=== PATIENT | female | born 1965 | race Caucasian/White ===

== ENCOUNTER 2017-02-06 20:50 | Observation (INO) | payer OTHER ==
[~2017-02-06] VITALS: Ht 167.6 cm; Wt 92.0 kg
[2017-02-06 21:12] VITALS: BP 162/95; PULSE 89; RESP 10; O2SAT 97
[2017-02-06 21:19] LABS: BASOPHILS % (AUTO) 0.2 % (0-3); EOSINOPHILS % (AUTO) 0.7 % (0-5); MONOCYTES % (AUTO) 5.2 % (4-12); Mean Corpuscular Hemoglobin 29.9 pg (27.0-35.0); Mean Corpuscular Volume 87.6 fL (81-100); NEUTROPHILS % (AUTO) 87.2 % (40-74); Platelet Count 277 bil/L (150-400)
--- NOTE | 2017-02-06 21:34 | ED.REPORT ---
HPI-Chest Pain 40 and Over Date of Service Feb 06, 2017 ED Provider: Alma Cardona MD Patient is a 51 year old female who is an everyday smoker with a history of hypertension and high cholesterol who presents to the ED complaining of chest pain onset three hours ago. She states that she started vomiting while driving and then started having chest pain that radiates into her left shoulder. The patient reports that the chest pain has been constant and is exacerbated with deep inspiration. Associated symptoms include shortness of breath, a non- productive cough and generalized myalgias. Currently her nausea is resolved. The patient denies diaphoresis, swelling in legs, numbness, weakness, fever, chills, and diarrhea. Nursing Notes Stated Complaint: CHEST PAIN AND VOMITING Chief Complaint: Chest Pain Nursing Notes Reviewed: Yes Allergies: Coded Allergies: codeine (Verified Allergy, Unknown, 02/06/17) tetracycline (Verified Allergy, Unknown, 02/06/17) General Time Seen by MD: 21:33 Chief Complaint Chest pain Hx Obtained From: Patient Arrived By: Walk-in Sudden in Onset?: Yes Onset Occurred: 1 - 4 hours ago Symptom Duration: Since onset Location: : Substernal Quality: Painful Radiation: : Shoulder left Severity: Current: Moderate Severity: Maximum: Moderate Associated with: Reports: Nausea, Shortness of Breath, Vomiting Recent Healthcare: No recent doctor visit, No recent hospitalization Similar Sx Previous: No Past Medical History Past Medical History hypertension high cholesterol Past Surgical History right kidney carpal tunnel surgery Family History stroke quadrupal bipass Smoking History Current Every Day Smoker Ambulatory Status Independent Review of Systems Constitutional: Denies: Chills, Fever Respiratory: Reports: Non-productive cough, Shortness of breath Cardiovascular: Reports: Chest pain GI: Reports: Nausea, Vomiting, Denies: Diarrhea Skin: Denies Diaphoresis Neurologic: Denies: Numbness Complete sys rev & neg: except as marked. Physical Exam Initial Vital Signs Vital Signs (First) Date Time Temp Pulse Resp B/P Pulse Ox O2 Delivery O2 Flow Rate FiO2 02/06/17 21:12 89 10 162/95 97 Room Air Initial VS: Reviewed General/Constitutional: Awake, Alert, No acute distress Respiratory / Chest: Atraumatic, No respiratory distress diffusive coarse breath sounds throughout Cardiovascular: Heart rate NL, Regular rhythm, Heart sounds NL Abdomen: Atraumatic, Soft, Non-tender Neck: Atraumatic, Supple, Full range of motion Back: Atraumatic, Full range of motion Lower Extremity / Pelvis / MS: Atraumatic, Full range of motion Skin: Atraumatic, Color NL, No rash, Warm, Dry Neurologic: Oriented X3, Speech NL, No motor deficits, No sensory deficits Psychiatric: Affect NL, Mood NL Head / Eyes: Atraumatic, Normocephalic, PERRL, EOMI ENT: Atraumatic, Airway patent, Mucous membranes moist Upper Extremity / MS: Atraumatic, Full range of motion Interpretation & Diagnostics Lab Results Interpretation Result Diagram: 02/06/17 2100 02/06/17 2100 Test 02/06/17 20:13 02/06/17 21:00 D-Dimer < 0.50mg/L FEU (<0.50) White Blood Count 16.0th/mm3 (3.8-10.1) Red Blood Count 5.15mil/mm3 (3.90-5.20) Hemoglobin 15.4g/dL (12.0-15.6) Hematocrit 45.1% (35.0-46.0) Mean Corpuscular Volume 87.6fL (81-100) Mean Corpuscular Hemoglobin 29.9pg (27.0-35.0) Mean Corpuscular Hemoglobin Concent 34.1% (32.0-37.0) Red Cell Distribution Width 13.5% (12.3-15.4) Platelet Count 277bil/L (150-400) Neutrophils (%) (Auto) 87.2% (40-74) Lymphocytes (%) (Auto) 6.6% (14-46) Monocytes (%) (Auto) 5.2% (4-12) Eosinophils (%) (Auto) 0.7% (0-5) Basophils (%) (Auto) 0.2% (0-3) Sodium Level 142mEq/L (134-144) Potassium Level 4.1mEq/L (3.5-5.2) Chloride Level 101mEq/L (97-108) Carbon Dioxide Level 21mmol/L (18-29) Blood Urea Nitrogen 15mg/dL (6-24) Creatinine 0.89mg/dL (0.57-1.00) Estimat Glomerular Filtration Rate 95mL/min (>59) Glucose Level 119mg/dL (60-99) Calcium Level 10.1mg/dL (8.5-10.1) Magnesium Level 1.9mg/dL (1.6-2.6) Total Bilirubin 0.4mg/dL (0.0-1.2) Aspartate Amino Transf (AST/SGOT) 20U/L (0-50) Alanine Aminotransferase (ALT/SGPT) 14U/L (0-32) Alkaline Phosphatase 90U/L (25-150) Troponin T < 0.010ug/L (0.0-0.011) Total Protein 8.0g/dL (6.4-8.4) Albumin 4.7g/dL (3.4-5.0) ECG Interpretation ECG Interpretation: sinus tachycardia, rate [address] elevation T wave inversion in aVR Time: 20:55 Interpreted by: ED physician X-Ray Chest Interpretation Chest Xray Interpretation: IMPRESSION: No acute disease Dictated by: Doug Ryan M.D. on 02/06/2017 at 21:45 Approved by: Doug Ryan M.D. on 02/06/2017 at 21:45 View: Portable, 1 view Interpretation / Wet Read by: Interpret - Radiologist Re-Eval/Medical Decision Med Decision/Clinical Course 51-year-old female with past medical history of hypertension, hyperlipidemia, tobacco abuse, family history of ACS here with chest pain, nausea, vomiting, shortness of breath. Differential diagnosis includes but is not limited to ST elevation WV versus non-ST elevation WV versus PE versus pleural effusion. Patient's EKG does not show any evidence of ST elevation W[place]. Her initial troponin is negative. She does not have pleural effusion on chest x-ray. Her d -dimer was negative. Given patient's concerning story, and risk factors, I have admitted her to the hospitalist for formal ACS rule out. She is aware and amenable to admission at this time. Time of Eval: 22:05 Re-Evaluation/Progress Note: Discussed need for admission. Patient is amenable to the plan. All other questions addressed. Consultation : Referral / Consult Name: Chris Hamilton MD Consulted With: Hospitalist Call Returned at: 22:43 Web Project Manager: Agrees with eval, Agrees with plan, Accepts admit Counseled Regarding: Diagnosis, Lab results, Need for admission Discharge & Departure Primary Impression: Chest pain Disposition: ADMITTED TO HOSPITAL Discharge Condition All VS Reviewed: Yes Condition: Stable Referrals: OTHER,PHYSICIAN (PCP) Scribe Attestation Portions of this note were transcribed by Taty Garcia and Buster Noble. I, Dr. Cardoan personally performed the history, physical exam and medical decision- making; I reviewed and confirmed the accuracy of the information in the transcribed note. Signed by: Taty Noble, Mayra, 02/06/17 and 2477 Alma Cardona MD Feb 06, 2017 21:34 Althea Garcia Feb 06, 2017 21:59 BUSTER NOBLE Feb 06, 2017 23:26
--- NOTE | 2017-02-06 21:47 | DRSVH ---
PROCEDURE: X-RAY CHEST ONE VIEW, PORTABLE ([id number]) INDICATIONS: Chest pain TECHNIQUE: One view of the chest was acquired. COMPARISON: None. FINDINGS: Surgical changes and devices: None. Lungs and pleura: No pleural effusions or pneumothorax. Lungs are clear. Mediastinum: Mediastinal contours appear normal. Heart size is normal. Bones and chest wall: No suspicious bony lesions. Overlying soft tissues appear unremarkable. IMPRESSION: No acute disease Dictated by: Doug Ryan M.D. on 02/06/2017 at 21:45 Approved by: Doug Ryan M.D. on 02/06/2017 at 21:45
[2017-02-06 21:50] VITALS: BP 169/94; PULSE 85; RESP 17; O2SAT 98
[2017-02-06 21:55] LABS: TROPONIN T < 0.010 ug/L (0.0-0.011)
[2017-02-06 22:03] LABS: Magnesium 1.9 mg/dL (1.6-2.6)
[2017-02-06] MEDS ORDERED: Ondansetron 2 mg/mL 2 mL Inj IVPUSH ONE (22:10)
[2017-02-06] MEDS ORDERED: Alum-Mag Hydrox-Simeth 30 mL Suspension PO PRN ×2 (22:50→23:50)
[2017-02-06] MEDS ORDERED: Ondansetron 2 mg/mL 2 mL Inj IVPUSH PRN ×2 (22:50→23:50)
[2017-02-06 23:14] VITALS: BP 152/89; PULSE 86; RESP 21; O2SAT 95
[2017-02-06 23:24] VITALS: BP 152/89; PULSE 86; RESP 21; O2SAT 95
[2017-02-06 23:38] VITALS: BP 152/82; PULSE 74; RESP 22; O2SAT 94
--- NOTE | 2017-02-06 23:41 | PCM.HPMED ---
Subjective Date of Service Feb 06, 2017 Primary Provider: Admitting Physician: Chris Hamilton MD Primary Care Physician: Other,Physician Attending Physician: Chris Hamilton MD Admit Status: From the Emergency Department Chief Complaint: Chest pain History of Present Illness: This is a somewhat depressed and tearful appearing 51 Y/O F with a Hx of GERD on omperazole, HTN, high cholesterol, and depression (takes Sertraline), who presented to the ED complaining of chest pain onset 1930 while she was driving her car. She states that she started vomiting while driving. Patient vomited in the car twice daily a 16 ounce container. Patient pulled over to a filling station and then proceeded to vomit another 8 times. After vomiting she began to experience chest pain that worsened with deep breathing. She states the chest pain radiated to her left shoulder and side neck. She denied previous similar symptoms in the past. Of note patient is a tobacco smoker. Associated signs and symptoms include nausea, vomiting, chills, shortness of breath, a 9 day history of non-productive cough. Currently her nausea is resolved. The patient denied diaphoresis, fever, chills, diaphoresis, diarrhea, constipation, sick contacts, abdominal pain, vision changes, lightheadedness, syncope, numbness, weakness. Patient was admitted to the hospital for chest pain and acute coronary syndrome ruled out. Vital signs and the ED, pulse 89, respiratory rate 21, blood pressure 152/89, with a map of 110, 95% on room air. In the ED patient received aspirin 325 mg once, IV Zofran 4 mg once. Hemogram showed: WBCs 16.0, percent neutrophils 87.2, H/H 15.4/45.1, platelets 277, Chemistry panel showed: Glucose 119, troponin 0.010, sodium 142, potassium 4.1, chloride 101, CO2 21, BUN 15, creatinine 0.9, otherwise normal chemistry panel. D-dimer less than 0.50 EKG showed: Review of Systems: A comprehensive review of systems was conducted and was negative except as mentioned in history of present illness. Allergies Coded Allergies: codeine (Verified Allergy, Unknown, 02/06/17) tetracycline (Verified Allergy, Unknown, 02/06/17) metronidazole (Verified Adverse Reaction, Unknown, Hives, 02/06/17) Home Medications Medication record is incomplete, as patient is not a good historian PCP is Basia [facility] Patient takes sertraline Patient takes omeprazole 20 mg daily reportedly Cholesterol and hypertension medication PMH hypertension high cholesterol Depression GERD Surgical History right sided nephrectomy Right carpal tunnel surgery Vaginal fistula repair 1991 Abortions 2 elective Family History stroke quadrupl bipass Social History Hx Alcohol Use: Yes Hx Substance Use: Yes Hx Tobacco Use: Yes (patient states she is quitting tobacco today) Smoking Status: Current Every Day Smoker Living Arrangement: with Family (patient lives with her daughter and granddaughter at home) Exam Vital Signs Vital Sign - Last Date Time Temp Pulse Resp B/P Pulse Ox O2 Delivery O2 Flow Rate FiO2 02/06/17 23:24 86 21 152/89 95 Room Air Exam General: Alert and oriented 3, somewhat tearful and labile during exam, answering questions in full sentences, resting comfortably in bed, appearing somewhat distraught. HEENT: NC/AT, eyes, PERRLA, EOMI, neck, soft supple, no adenopathy, no JVD, no masses, no thyromegaly, throat mucous membranes pink and moist, no erythema, no exudates, no tonsillar swelling, no uvular deviation. Lungs: Lungs significant for bilateral wheezes wheezes, no rhonchi, no crackles , no use of accessory muscles of respiration, good air movement, good respiratory effort. Heart: Regular rate and rhythm, no murmur, S1-S2 present, no rub, no click, no distant heart sounds, Abdomen: Soft, mild epigastric tenderness with palpation, nondistended, bowel sounds active, no rebound, no guarding, Genitourinary: No CVA tenderness, mild suprapubic tenderness, no Mark catheter, Extremities: Ppulses equal and symmetric upper/lower extremity including radial and dorsalis pedis, no edema Neurologic: Grossly neurologically intact, speaking in full sentences, no focal neurological signs. Skin: Skin on anterior chest petechial type rash Psychiatric: Mood is depressed, patient is tearful during interview, denies thoughts HI/SI, Lab and Diagnostics Result Diagram: 02/06/17209902/06/172099 X-Rays, CTs and MRIs Date of Service: 02/06/172056 PROCEDURE: X-RAY CHEST ONE VIEW, PORTABLE INDICATIONS: Chest pain TECHNIQUE: One view of the chest was acquired. COMPARISON: None. FINDINGS: Surgical changes and devices: None. Lungs and pleura: No pleural effusions or pneumothorax. Lungs are clear. Mediastinum: Mediastinal contours appear normal. Heart size is normal. Bones and chest wall: No suspicious bony lesions. Overlying soft tissues appear unremarkable. IMPRESSION: No acute disease Dictated by: Doug Ryan M.D. on 02/06/2017 at 21:45 Approved by: Doug Ryan M.D. on 02/06/2017 at 21:45 Assessment & Plan This is a pleasant 51-year-old female with past history of hypertension and hyperlipidemia who presented to the ED with acute onset chest pain 3 hours radiated to the left shoulder with associated vomiting area and patient was admitted to the hospital for further workup of acute coronary syndrome. # Acute Coronary Syndrome/GA, Present on Admission -Patient reports acute onset chest pain radiating to the neck and upper chest on the left after having vomited 10. Patient denies previous history of similar symptoms chest pain. Chest pain was described as constant and exacerbated by deep breathing. -Of note patient has had a minimally productive cough for the past 9 days. -Troponin in the ED 0.010 -EKG, ordered and pending -CXR showed no acute process -Troponin T X 2, ordered and pending -CPK-MB ordered and pending -Echo scheduled for the morning -We will consider Stress testing if troponins elevated -O2 Sats keep > 94% -IV fluids normal saline at 100 mL per hour -She has home medication for cholesterol, med rec no complete -Morphine for pain control -Nitro SL, Nitro Harmony, Nitro Paste (PRN) -Aspirin 325mg -Continuous Cardiac Monitoring/BP monitoring -May consider cardiology consult in the morning if troponins returned positive. -Labs (Lipid Panel, CBC, CMP, PT/PTT/INR) -NPO # Leukocytosis, present does not on admission, active - Vital signs and the ED, pulse 89, respiratory rate 21, blood pressure 152/89 , with a map of 110, 95% on room air. - Hemogram showed: WBCs 16.0, percent neutrophils 87.2, H/H 15.4/45.1, platelets 277 # Cough Non productive, present on admission, active - CXR showed: No acute process - Physical exam significant for bilateral wheezes - DuoNeb therapy every 4 hours 2 then when necessary # Vomiting, present on admission, active -Patient reports rapid onset feeling that she was ill and began vomiting while driving her vehicle. - She reports having vomited 10 times onset 1930 on 02/06/2017, patient states she was able to feel a 16 ounce container twice and then vomited more times with gas station. - She received IV Zofran in the ED with improvement - IV Zofran - IV fluids as previously stated # Hyperglycemia, present on admission, active - Glucose 118 - Likely stress reaction - Continue to monitor Chronic problems hypertension -Continue home medication high cholesterol -Continue cholesterol medication, medication reconciliation not completed as patient does not know meds or dosing. GERD - Continue home medication omeprazole 20 mg daily Depression - Continue home medication sertraline, medication reconciliation not completed. Tobacco smoker, -Smokes 1 pack per day, states she is quitting today. Disposition: Admitted to in patient service for observation secondary to chest pain and acute coronary syndrome rule out, and to severity of presenting symptoms, treatment plan, complexity of clinical work up, and risk of adverse events. CODE STATUS: Full code PCP: Basia Farias, [facility] DVT PE prophylaxis: SubQ heparin Q8H Contact: Patient's brother Basim [phone] Pain Evaluation: Adequate Pain Control VTE Prophylaxis: Sub-Q Heparin (Unfractionated) Resuscitation Status: CPR: Attempt Resuscitation Attending Statement The patient was seen and examined together with Dr. Miller on 02/06/2017 and I agree with the history, exam and plan as outlined in the note above. Luis Alfredo Miller DO Feb 06, 2017 23:41 Chris Hamilton MD Feb 07, 2017 05:02
--- NOTE | 2017-02-06 23:41 | NUR ---
Admission Pt arrived to room 3019 alert and oriented and able to ambulate. Pt had no complaints of pain or chest discomfort, and was conversing in full sentences. Pt was oriented to room, call light, bed, policies, and placed on telemetry. Addendum: 02/07/17 at 0047 by TONY BAIG RN Pt did not know her home medications and said she could call her daughter in the morning and get the list over the phone.
[2017-02-06 23:48] LABS: APPEARANCE,URINE CLEAR (CLEAR,HAZY); COLOR,URINE DARK YELLOW (YELLOW)
[2017-02-06 23:49] LABS: OCCULT BLOOD,URINE NEGATIVE (NEGATIVE)
[2017-02-06] MEDS ORDERED: Senna-Docusate 8.6-50 mg Tablet PO PRN (23:50)
[2017-02-06] MEDS ORDERED: Polyethylene Glycol (PEG) 17 Gm Powder PO PRN (23:50)
[2017-02-07] VITALS (8 sets, daily range): BP systolic 117–146; BP diastolic 70–95; PULSE 55–75; RESP 16–20; O2SAT 94–96
[2017-02-07] MEDS: Sodium Chloride LOK Flush 10 mL Syringe IVFLUSH SCH ×3 (00:35→16:30)
[2017-02-07] MEDS: 0.9% Sodium Chloride 1,000 ML IV SCH ×2 (00:35→13:06)
[2017-02-07] MEDS: Heparin 5,000 Unit/mL Inj SUBQ SCH ×3 (00:36→17:16)
[2017-02-07] MEDS ORDERED: Albuterol-Ipratropium 3 mL Inhalation Solution NEB ONE (00:38)
[2017-02-07] MEDS ORDERED: Albuterol-Ipratropium 3 mL Inhalation Solution NEB PRN (00:40)
[2017-02-07 01:02] LABS: INR 0.95 ratio
[2017-02-07 01:12] LABS: TROPONIN T < 0.010 ug/L (0.0-0.011)
[2017-02-07 01:13] LABS: Magnesium 1.9 mg/dL (1.6-2.6)
[2017-02-07 05:46] LABS: BASOPHILS % (AUTO) 0.4 % (0-3); EOSINOPHILS % (AUTO) 1.5 % (0-5); MONOCYTES % (AUTO) 6.4 % (4-12); Mean Corpuscular Hemoglobin 30.2 pg (27.0-35.0); Mean Corpuscular Volume 89.3 fL (81-100); NEUTROPHILS % (AUTO) 67.8 % (40-74); Platelet Count 227 bil/L (150-400)
--- NOTE | 2017-02-07 12:46 | DRSVH ---
[facility] [address] [place] [address] Echocardiogram Report Name: PETER CROCKETT MStudy Date : 02/07/2017 Height: 66 in Hospital Exam Location: [facility] Weight: 197 lb Gender: Female BSA: 2.0 m2 : 1965 Age: 51 yrs BP: 117/70 mmHg Reason For Study: Chest pain Ordering Physician: Performed By: [facility] Interpretation Summary 1) Mild concentric left ventricular hypertrophy with normal size, wall motion, and systolic functoin (EF 60-65%). 2) Normal right ventricular size and function. 3) No significant valvluar abnormalities. 4) No prior Echo available for comparison. Procedure: A two-dimensional transthoracic echocardiogram with color flow and Doppler was performed. The study quality was technically adequate. There is no prior echocardiogram noted for this patient. The patient was in normal sinus rhythm during the exam. Left Ventricle: There is mild concentric left ventricular hypertrophy. The left ventricle is normal in size. The ejection fraction is estimated to be 60 -65%. Left ventricular systolic function is normal. Left ventricular wall motion is normal. Assessment of diastolic parameters indicates a relaxation abnormality of the left ventricle, consistent with normal filling pressures. Right Ventricle: The right ventricle is normal in size and function. Atria: Both atria are normal in size. There is no Doppler evidence for an interatrial shunt. Mitral Valve: The mitral valve is normal in structure and function. There is trace mitral regurgitation. Aortic Valve: The aortic valve is grossly normal. The aortic valve opens well. There is no aortic valve stenosis. No aortic regurgitation is present. Tricuspid Valve: The tricuspid valve is normal in structure and function. There is a trace or physiologic amount of tricuspid regurgitation. The right ventricular systolic pressure is estimated at least 22 mmHg assuming a right atrial pressure of 3 mm Hg. Pulmonic Valve: The pulmonic valve is not well visualized. There is trace pulmonic regurgitation. Great Vessels: The aortic root is normal size. The ascending aorta could not be visualized. The aortic arch is at the upper limits of normal in size. The IVC is of normal diameter and collapses greater than 50% with a sniff. This suggests a low right atrial pressure of 3 mm Hg. Pericardium/ Pleura There is no pericardial effusion. MMode/2D Measurements & Calculations LVIDd: 4.4 cm RA long axis LVOT diam: 2.1 cm LVIDs: 2.9 cm LA A2 area: 21.0 cm Ao root diam FS: 34.3 % LA A4 area: 17.6 cm RA area EPSS: 0.36 cm LA length (vol) Aortic Jxn: 2.4 cm IVSd: 1.2 cm : 15.6 cm Ao Arch Diam (Prox LVPWd: 1.2 cm LA vol: 64.2 ml RA vol Trans): 3.1 cm LA vol index : 41.9 ml RA : 21.1 mm2 IVC diam: 1.7 cm LV sheehan. diameter/BSA LV sys. diameter/BSA RVD1 (basal) RVD2 (mid): 2.5 cm (cm/m^2): 2.2 (cm/m^2): 1.5 Doppler Measurements & Calculations Ao V2 max MV E max rey MV E/A: 1.3 TR max rey : 169.6 cm/sec : 92.6 cm/sec Med Peak E' Rey : 217.5 cm/sec Ao max PG MV A max rey TR max PG : 11.5 mmHg : 72.9 cm/sec E/E' med: 14.2 : 18.9 mmHg Ao mean PG MV P1/2t: 74.8 msec Lat Peak E' Rey PA V2 max : 92.0 cm/sec LVOT Max Rey E/E' lat: 10.1 PA mean PG : 102.5 cm/sec E/e' average: 12.2 Pulm A Revs Dur PA Accel Time BERNARDINO(I,D): 2.2 cm : 0.18 sec sev ratio MV A dur: 0.13 sec MV dec time MV P1/2t max rey Ao V2 mean LV V1 max PG : 0.25 sec : 114.3 cm/sec MVA(P1/2t): 2.9 cm2 Ao V2 VTI: 37.4 cm LV V1 VTI BERNARDINO(V,D): 2.1 cm2 : 24.2 cm PA V2 mean BERNARDINO indexed to BSA Kristin Pompas Dur - MV A : 61.8 cm/sec (cm^2/m^2): 1.1 Dur: -0.01 msec Reading Physician:12:45 PM
[2017-02-07] MEDS ORDERED: SERT100T PO (14:34)
[2017-02-07] MEDS ORDERED: LISI-567 PO (14:34)
[2017-02-07] MEDS ORDERED: ATOR20TA PO (14:34)
[2017-02-07] MEDS ORDERED: AZIT250T4 PO (14:34)
[2017-02-07] MEDS ORDERED: OMEP20TA86 PO (14:34)
--- NOTE | 2017-02-07 14:59 | NUR ---
Social Work -Brief Note Data: EMR reviewed. Pt was admitted 02/06/17 for chest pain resolved. [facility] SW met with pt at bedside to discuss discharge planning. SW role explained. Pt resides at home and is independent at baseline. Pt stated she has not completed DPOA/Advanced Care Directive paperwork and SW provided info to review and complete. Will discharge via POV when medically stable. No additional needs anticipated at this time. SW provided contact info on the board. SW will continue to follow for needs. Assessment: Pt who is independent at baseline. Plan: Pt likely to discharge home via POV with no needs. SW will continue to follow. ANDRES Dhaliwal
--- NOTE | 2017-02-07 16:04 | NUR ---
Activity/Stress test Pt has been ambulating in the hallway independently, no complains of chest discomfrt/pressure, SOB, or nausea. Stress test not completed 02/07, pt to be NPO after midnight tonight for completion of stress test 02/08 at 0900. Pt encouraged to contact staff for needs. Frequent rounding in place, will continue to monitor.
--- NOTE | 2017-02-07 18:37 | NUR ---
Diarrhea Pt reports episode of diarrhea following dinner, no complains of nausea or abdominal discomfrt. Pt thinks may be related to "drinking too much juice" takes Loperamide at home. MD nevarez for order, Frequent rounding in place, will continue to monitor. Addendum: 02/07/17 at 1901 by TANIYA CASTILLO RN order for medication generated.
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
[2017-02-08] MEDS: Sodium Chloride LOK Flush 10 mL Syringe IVFLUSH SCH ×2 (00:44→08:05)
[2017-02-08] MEDS: Heparin 5,000 Unit/mL Inj SUBQ SCH ×2 (00:45→08:07)
[2017-02-08 02:01] VITALS: BP 120/79; PULSE 52; RESP 18; O2SAT 97
--- NOTE | 2017-02-08 04:27 | NUR ---
PT ACTIVITY Pt has been up to BR independently. Pt has denied any pain or complaints during night. Pt aware of cardiac stress test in am. Continue to monitor. Call light in reach. Intentional rounding.
[2017-02-08 06:33] VITALS: BP 122/82; PULSE 53; PULSE 63; RESP 17; O2SAT 97
[2017-02-08] MEDS ORDERED: Pantoprazole 20 mg ER24 Tablet PO SCH (07:30)
[2017-02-08] MEDS ORDERED: Albuterol 2.5 mg/3 mL Inhalation Solution NEB PRN (08:00)
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
--- NOTE | 2017-02-08 09:09 | PCM.DIMED ---
Discharge Instructions Date of Service Feb 08, 2017 Dates of Hospitalization Feb 06, 2017 at 23:19 Discharge Diagnosis Discharge Diagnosis Chest pain due to asthma and bronchitis, hypertension, depression, gerd Medication Instructions Plese complete 2 more days of zithromax. Please complete 4 more days of prednisone New medication for BP, Hydrochlorothiazide is started. Test Results [facility] Diagnostic [place] [address] Patient Name: PETER CROCKETT MR#: [id number] Location[place] [facility] [place] Ordering Phys: Luis Alfredo Miller DO Date of Service: 02/07/17 0800 [facility] [address] [place] [address] Echocardiogram Report Name: PETER CROCKETT MStudy Date : 02/07/2017 Height: 66 in Hospital Exam Location: [facility] Weight: 197 lb Gender: Female BSA: 2.0 m2 : 1965 Age: 51 yrs BP: 117/70 mmHg Reason For Study: Chest pain Ordering Physician: Performed By: [facility] Interpretation Summary 1) Mild concentric left ventricular hypertrophy with normal size, wall motion, and systolic functoin (EF 60-65%). 2) Normal right ventricular size and function. 3) No significant valvluar abnormalities. 4) No prior Echo available for comparison. Procedure: A two-dimensional transthoracic echocardiogram with color flow and Doppler was performed. The study quality was technically adequate. There is no prior echocardiogram noted for this patient. The patient was in normal sinus rhythm during the exam. Left Ventricle: There is mild concentric left ventricular hypertrophy. The left ventricle is normal in size. The ejection fraction is estimated to be 60 -65%. Left ventricular systolic function is normal. Left ventricular wall motion is normal. Assessment of diastolic parameters indicates a relaxation abnormality of the left ventricle, consistent with normal filling pressures. Right Ventricle: The right ventricle is normal in size and function. Atria: Both atria are normal in size. There is no Doppler evidence for an interatrial shunt. Mitral Valve: The mitral valve is normal in structure and function. There is trace mitral regurgitation. Aortic Valve: The aortic valve is grossly normal. The aortic valve opens well. There is no aortic valve stenosis. No aortic regurgitation is present. Tricuspid Valve: The tricuspid valve is normal in structure and function. There is a trace or physiologic amount of tricuspid regurgitation. The right ventricular systolic pressure is estimated at least 22 mmHg assuming a right atrial pressure of 3 mm Hg. Pulmonic Valve: The pulmonic valve is not well visualized. There is trace pulmonic regurgitation. Great Vessels: The aortic root is normal size. The ascending aorta could not be visualized. The aortic arch is at the upper limits of normal in size. The IVC is of normal diameter and collapses greater than 50% with a sniff. This suggests a low right atrial pressure of 3 mm Hg. Pericardium/ Pleura There is no pericardial effusion. MMode/2D Measurements & Calculations LVIDd: 4.4 cm RA long axis LVOT diam: 2.1 cm LVIDs: 2.9 cm LA A2 area: 21.0 cm Ao root diam FS: 34.3 % LA A4 area: 17.6 cm RA area EPSS: 0.36 cm LA length (vol) Aortic Jxn: 2.4 cm IVSd: 1.2 cm : 15.6 cm Ao Arch Diam (Prox LVPWd: 1.2 cm LA vol: 64.2 ml RA vol Trans): 3.1 cm LA vol index : 41.9 ml RA : 21.1 mm2 IVC diam: 1.7 cm LV sheehan. diameter/BSA LV sys. diameter/BSA RVD1 (basal) RVD2 (mid): 2.5 cm (cm/m^2): 2.2 (cm/m^2): 1.5 Doppler Measurements & Calculations Ao V2 max MV E max rey MV E/A: 1.3 TR max rey : 169.6 cm/sec : 92.6 cm/sec Med Peak E' Rey : 217.5 cm/sec Ao max PG MV A max rey TR max PG : 11.5 mmHg : 72.9 cm/sec E/E' med: 14.2 : 18.9 mmHg Ao mean PG MV P1/2t: 74.8 msec Lat Peak E' Rey PA V2 max : 92.0 cm/sec LVOT Max Rey E/E' lat: 10.1 PA mean PG : 102.5 cm/sec E/e' average: 12.2 Pulm A Revs Dur PA Accel Time BERNARDINO(I,D): 2.2 cm : 0.18 sec sev ratio MV A dur: 0.13 sec MV dec time MV P1/2t max rey Ao V2 mean LV V1 max PG : 0.25 sec : 114.3 cm/sec MVA(P1/2t): 2.9 cm2 Ao V2 VTI: 37.4 cm LV V1 VTI BERNARDINO(V,D): 2.1 cm2 : 24.2 cm PA V2 mean BERNARDINO indexed to BSA Pulm A Revs Dur - MV A : 61.8 cm/sec (cm^2/m^2): 1.1 Dur: -0.01 msec Reading Physician:12:45 PM Diet Heart Healthy Activity No restrictions Patient Instructions Follow-up plan F/U with PCP in one to two weeks F/U BMP in 2 weeks prior to visit with PCP Saadia Caballero DO Feb 08, 2017 09:06
[2017-02-08 09:13] VITALS: PULSE 80
[2017-02-08 09:25] VITALS: PULSE 59; RESP 18; O2SAT 95
--- NOTE | 2017-02-08 09:28 | NUR ---
Stress test Pt off the unit for completion of stress test. No complains of chest discomfrt or SOB, voided prior. NPO since midnight, no caffeine, nitro or chocolate in the last 24 hours.
[2017-02-08] MEDS ORDERED: PRED-508 PO (11:07)
[2017-02-08] MEDS ORDERED: predniSONE 20 mg Tablet PO SCH (13:00)
[2017-02-08] MEDS ORDERED: HYDR12.5 PO (13:41)
--- NOTE | 2017-02-08 14:02 | NUR ---
Social Work - Discharge Data: EMR reviewed. Pt is on day 2 of hospitalization for chest pain resolved. Pt has been medically cleared to discharge and is up and independent in room. Pt will discharge home via self in POV. No further discharge needs identified at this time. Assessment: Pt who is independent at baseline. Plan: Pt to discharge home via POV. No discharge needs identified. ANDRES Dhaliwal
--- NOTE | 2017-02-08 14:28 | NUR ---
Discharge Pt discharged at this time, all belongings gathered and returned to pt. VSS, no complains of chest discomfrt/pressure, N/V or increased pain. IV D/Cd intact, tele monitor removed. Hard copy of new scripts given to pt to fill. Discharge packet printed and reviewed with pt. Pt declined offer of wheelchair, steady strong gait. Pt escorted from [facility] [place] by this RN to the elevators. Pt to drive self home in private vehicle.
--- NOTE | 2017-02-09 05:59 | DRSVH ---
PROCEDURE: STRESS ONLY Exercise myocardial perfusion SPECT with gated imaging and ejection fraction RADIOPHARMACEUTICAL: 22.6 mCi Tc-99m tetrafosmin IV at peak exercise. INDICATIONS: CHEST PAIN. TECHNIQUE: Radiopharmaceutical was injected at peak stress test. SPECT images were obtained, with p erfusion images in short axis, horizontal long axis, and vertical long axis views. Gated images were reviewed using [employer] software. COMPARISON: None. CARDIAC STRESS: A standard Maurisio treadmill exercise tolerance test was performed by the patient under the supervision of an attending staff. The patient exercised for 10 minutes and 22 seconds reaching 11.6 METs; func tional aerobic impairment (BERNY) is -24%. Hemodynamic data: There is normal blood pressure and heart response to exercise. Resting BP 162/94 and maximum BP of 190/105 during stress. Patient achieved 90% of maximum predicted heart rate. Symptoms: Patient denied anginal chest pain during exercise. EKG: No diagnostic changes of ischemia; rare ventricular ectopy during recovery. FINDINGS: Raw data: There is good labeling of myocardium by radiotracer. No significant motion artifacts. Left ventricular function: Gated images demonstrate normal left ventricle wall thickening. No segme ntal wall motion abnormalities. Left ventricle end diastolic volume is 80 mL. Left ventricle stress ejection fraction is 75%; normal values are above 45%. Myocardial perfusion: There is a small defect of mild intensity in the distal anterior wall that imp roves significantly with prone imaging, suggesting breast attenuation than true ischemia or infarctio n. IMPRESSION: low risk study. 1) Probably normal perfusion images with no evidence of ischemia or infarction. There is a small def ect of mild intensity in the distal anterior wall that improves significantly with prone imaging, sug gesting breast attenuation than true ischemia or infarction. 2) Normal left ventricular size, wall motion, and systolic function (EF 75%). 3) No ECG evidence of ischemia or infarction. 4) Good exercise capacity (11.6 METs, BERNY -24%). Target heart rate achieved. Appropriate hemodynami c response to exercise. 5) Moderate hypertension present at rest (resting BP 162/94). 6) No prior stress tests available for comparison. Results discussed with Dr. Saadia Caballero at 1310 on 02/08/2017. Recommend further optimization of hypertension management. Dictated by: Peyton Carrillo M.D. on 02/08/2017 at 13:06 Approved by: Peyton Carrillo M.D. on 02/08/2017 at 13:13
== END 2017-02-08 14:25 | disposition home or self-care (01) ==
LOC: SED 20:50 → MPC 23:19
PROVIDERS: ADMIT Family Medicine; ATTEND Family Medicine
DX: R07.89 Other chest pain (principal); J40 Bronchitis, not specified as acute or chronic; I10 Essential (primary) hypertension; E78.5 Hyperlipidemia, unspecified; K21.9 Gastro-esophageal reflux disease without esophagitis; F17.210 Nicotine dependence, cigarettes, uncomplicated; R11.2 Nausea with vomiting, unspecified; R73.09 Other abnormal glucose
CPT/HCPCS: 36415; 71010; 78451; 80048; 80053; 80061; 81000; 83036; 83735; 84439; 84443; 84484; 85025; 85378; 85610; 85730; 93005; 93017; 94640; 94664; 96374; 99285; A9502; C8929; G0378; J1644; J2405; J7030; J7613; J7620